=== PATIENT | male | born 1965 | race Caucasian/White ===

== ENCOUNTER → 2018-03-28 | Outpatient (CLI) | payer OTHER ==
[~2018-03-28] MED LIST: DILTIAZEM 24HR240 MG PO; FLEXERIL PO; IBUPROFEN 800800 M1 PO; NEXIUM40 MG PO; NORCO 5-325 TA1 EACH PO; PAXIL; XANAX 0.5 MG0.5 M1; ZANTAC 150MG T150 M1; [UNRECOGNIZED DRUG - REMARK]; [UNRECOGNIZED DRUG - REMARK]
== END ==
LOC: M.CT 08:07
DX: K76.0 Fatty (change of) liver, not elsewhere classified (principal); J98.11 Atelectasis; J98.4 Other disorders of lung; N40.0 Benign prostatic hyperplasia without lower urinary tract symptoms; K57.30 Diverticulosis of large intestine without perforation or abscess without bleeding; I10 Essential (primary) hypertension

== ENCOUNTER → 2018-04-01 | Outpatient (CLI) | payer OTHER | LOC: M.MRI 11:00 | DX: K86.9 Disease of pancreas, unspecified (principal) ==

== ENCOUNTER 2018-11-28 12:53 | Emergency (ER) | payer OTHER ==
[~2018-11-28] VITALS: Ht 175.3 cm; Wt 105.2 kg
[2018-11-28] MEDS ORDERED: ZANTAC 150MG T150 MG PO (13:03)
[2018-11-28] MEDS ORDERED: FLOMAX0.4 MG PO (13:03)
[2018-11-28 13:25] LABS: ABSOLUTE EOSINOPHILS 0.1 thou/uL (0.0-0.7); ABSOLUTE LYMPHOCYTES 1.6 thou/uL (0.8-5.3); ABSOLUTE MONOCYTES 0.6 thou/uL (0.0-1.2); ABSOLUTE NEUTROPHILS 3.7 thou/uL (1.6-8.1); BASOPHILS 0.6 %; EOSINOPHILS 1.7 %; HEMATOCRIT 43.7 % (42.0-52.0); HEMOGLOBIN 14.7 gm/dL (14.0-18.0); LYMPHOCYTES 27.1 %; MCH 31.2 pg (26.0-34.0); MCHC 33.7 g/dL (28.0-37.0); MCV 92.6 fL (80.0-100.0); MONOCYTES 9.2 %; MPV 10.2 fl. (7.2-11.1); NUCLEATED RBCS 0 /100WBC; PLATELET COUNT* 244 thou/uL (150-400); POLYS 61.4 %; RBC 4.72 mil/uL (4.50-6.00); RDW-CV 13.4 % (10.5-14.5)
[2018-11-28 13:33] LABS: ANION GAP 9 mmol/L (7-16); BUN 23 mg/dL (7-18); CALCIUM 8.7 mg/dL (8.5-10.1); CHLORIDE 103 mmol/L (98-107); CO2 26 mmol/L (21-32); CREATININE 1.1 mg/dL (0.6-1.3); GLUCOSE 97 mg/dL (70-99); POTASSIUM 3.9 mmol/L (3.5-5.1); PROTIME 10.7 Seconds (9.20-11.50); SODIUM 138 mmol/L (136-145)
[2018-11-28 13:46] LABS: ALBUMIN 3.9 g/dL (3.4-5.0); ALKALINE PHOSPHATASE 80 U/L (46-116); SGOT 17 U/L (15-37); SGPT 41 U/L (30-65); TOTAL BILIRUBIN 0.5 mg/dL (<0.1-1.0); TOTAL PROTEIN 7.3 g/dL (6.4-8.2); TROPONIN-I LEVEL <0.06 ng/mL (<0.06)
[2018-11-28 14:24] VITALS: BP 148/89
--- NOTE | 2018-11-28 17:10 | EKG ---
[place] [address] ELECTROCARDIOGRAM REPORT Name: KOKO GARNICA Room: [facility]#: [id number] Admission: 11/28/18 Attend Phys: Discharge: 11/28/18 Date of : 63 Report #: [id number] THIS REPORT FOR: //name// [facility] ED Test Date: 2018-11-28 Test Time: 13:03:43 Pat Name: KOKO GARNICA Department: Room: Gender: M Coater Operator: ALYSSA : 1965 Requested By: William Aaron Order Number: [id number] MD: Thony Ramos Measurements Intervals [place] Rate: 69 P: 37 MA: 167 QRS: 10 QRSD: 98 T: 58 QT: 422 QTc: 452 Interpretive Statements Sinus rhythm Probable left atrial enlargement Compared to ECG 01/06/2013 10:32:12 Sinus bradycardia no longer present Electronically Signed On 11-28-2018 17:10:36 CDT by Thony Ramos [email or web address] <ELECTRONICALLY SIGNED> By: Thony Ramos MD, [facility] 11/28/18 1710 1303 1303 Thony Ramos MD, FACC /EPI
== END 2018-11-28 14:24 | disposition home or self-care (01) ==
LOC: M.ERS 12:53
PROVIDERS: Family Medicine
DX: R51 Headache (principal); R20.2 Paresthesia of skin; I10 Essential (primary) hypertension